=== PATIENT | male | born 1945 | race Caucasian/White ===

== ENCOUNTER 2018-10-20 22:28 | Emergency (ER) | payer MEDICARE, OTHER ==
--- NOTE | 2018-10-20 23:10 | EDM.PDOC ---
ED HPI GENERAL MEDICAL PROBLEM - General Chief Complaint: Genitourinary Problem Stated Complaint: NEEDS CATHETER Time Seen by Provider: 10/20/18 23:00 Source of Information: Reports: Patient History Limitations: Reports: No Limitations - History of Present Illness INITIAL COMMENTS - FREE TEXT/NARRATIVE: This 73 yo male patient reports to the ED due to hematuria. The patient reports he started to notice blood in his urine this afternoon. The patient reports earlier he did insert a catheter, but the catheter plugged. The patient reports he has been able to void 1 time prior to coming to the emergency department. The patient reports frequency and urgency, but is currently only able to void small amounts. Onset: Today Duration: Constant Location: Reports: Other Quality: Reports: Pressure Severity: Moderate Improves with: Reports: None Worsens with: Reports: None Context: Reports: Other Associated Symptoms: Reports: No Other Symptoms Bladder Pain Score (Numeric/FACES): 7 - Related Data Allergies Allergy/AdvReac Type Severity Reaction Status Date / Time cephalexin [From Keflex] Allergy Hives Verified 10/20/18 22:43 Home Meds: Home Meds Acyclovir 800 mg PO DAILY 10/20/18 [History] Past Medical History HEENT History: Reports: Cataract Cardiovascular History: Reports: Other (See Below) Other Cardiovascular History: "leaky heart valve" Gastrointestinal History: Reports: Other (See Below) Other Gastrointestinal History: esophageal ulcers Genitourinary History: Reports: Prostate Disorder - Infectious Disease History Infectious Disease History: Reports: Chicken Pox, Measles, Mumps, Shingles - Past Surgical History HEENT Surgical History: Reports: Cataract Surgery Other HEENT Surgeries/Procedures: L) Male Surgical History: Reports: TURP-Transurethral Resection of Prostate Social & Family History - Family History Family Medical History: Noncontributory - Tobacco Use Smoking Status *Q: Never Smoker - Caffeine Use Caffeine Use: Reports: Coffee, Tea - Recreational Drug Use Recreational Drug Use: No ED ROS GENERAL - Review of Systems Review Of Systems: ROS reveals no pertinent complaints other than HPI. ED EXAM, RENAL/ - Physical Exam Exam: See Below Exam Limited By: No Limitations General Appearance: Alert, WD/WN, Moderate Distress Eye Exam: Bilateral Eye: EOMI, Normal Inspection, PERRL Ears: Normal External Exam, Normal Canal, Hearing Grossly Normal, Normal TMs Nose: Normal Inspection, Normal Mucosa, No Blood Throat/Mouth: Normal Inspection, Normal Lips, Normal Teeth, Normal Gums, Normal Oropharynx, Normal Voice, No Airway Compromise Head: Atraumatic, Normocephalic Neck: Normal Inspection, Supple, Non-Tender, Full Range of Motion Respiratory/Chest: No Respiratory Distress, Lungs Clear, Normal Breath Sounds, No Accessory Muscle Use, Chest Non-Tender Cardiovascular: Normal Peripheral Pulses, Regular Rate, Rhythm, No Edema, No Gallop, No JVD, No Murmur, No Rub GI/Abdominal: Normal Bowel Sounds, Soft, Tender (lower abdomen) (Male) Exam: Deferred Rectal (Males) Exam: Deferred Back Exam: Normal Inspection, Full Range of Motion, NT Extremities: Normal Inspection, Normal Range of Motion, Non-Tender, Normal Capillary Refill, No Pedal Edema Neurological: Alert, Oriented, CN II-XII Intact, Normal Cognition, Normal Gait, Normal Reflexes, No Motor/Sensory Deficits Psychiatric: Normal Affect, Normal Mood Skin Exam: Warm, Dry, Intact, Normal Color, No Rash Lymphatic: No Adenopathy Course - Vital Signs Last Recorded V/S: Last Vital Signs Temp 36.4 C 10/20/18 22:50 Pulse 107 H 10/20/18 22:50 Resp 16 10/20/18 22:50 BP 171/74 H 10/20/18 22:50 Pulse Ox 97 10/20/18 22:50 - Orders/Labs/Meds Orders: Active Orders 24 hr Category Date Time Status Bladder Scan [RC] ASDIRECTED Care 10/20/18 23:03 Active Urinary Catheter Assessment [RC] ASDIRECTED Care 10/20/18 23:03 Active Urinary Catheter Insertion [Insert Urinary Catheter] [ Care 10/20/18 23:15 Ordered OM.PC] Q24H Abdomen 1V Flat [CR] Urgent Exams 10/21/18 00:24 Ordered CULTURE URINE [RM] Urgent Lab 10/20/18 22:51 Received Labs: Laboratory Tests 10/20/18 Range/Units 22:51 Urine Color Red (YELLOW) Urine Appearance Turbid (CLEAR) Urine pH 8.5 (5.0-9.0) Ur Specific [place] <= 1.005 (1.005-1.030) Urine Protein >=300 H (NEGATIVE) Urine Glucose (UA) 100 H (NEGATIVE) Urine Ketones 40 H (NEGATIVE) Urine Occult Blood Large H (NEGATIVE) Urine Nitrite Negative (NEGATIVE) Urine Bilirubin Large H (NEGATIVE) Urine Urobilinogen 4.0 H (0.2-1.0) mg/dL Ur Leukocyte Esterase Large H (NEGATIVE) Urine RBC Semi-packed H /HPF Urine WBC 30-40 H (0-5/HPF) /HPF Ur Epithelial Cells Few /HPF Urine Bacteria Moderate H (0-FEW/HPF) /HPF Meds: Medications Discontinued Medications Generic Name Dose Route Start Last Admin Trade Name Abdon PRN Reason Stop Dose Admin Lidocaine HCl 5 ml 10/20/18 23:32 10/20/18 23:43 Xylocaine 2% Jelly TOP 10/20/18 23:33 Not Given ONETIME ONE Lidocaine HCl Confirm 10/20/18 23:39 10/20/18 23:41 Xylocaine 2% Jelly Administered 10/20/18 23:40 Not Given Dose 10 ml .ROUTE .STK-MED ONE Lidocaine HCl 10 ml 10/20/18 23:39 10/20/18 23:43 Xylocaine 2% Jelly MUCMEM 10/20/18 23:40 10 ml ONETIME ONE Administration Tamsulosin HCl 0.4 mg 10/21/18 00:54 10/21/18 01:04 Flomax PO 10/21/18 00:55 0.4 mg ONETIME ONE Administration - Re-Assessments/Exams Free Text/Narrative Re-Assessment/Exam: 10/21/18 01:05 Several attempts at placing a catheter in the patient with a 14 rwandan and a 14 caude x 2 attempts with no success. An attempt to irrigate the catheter was also unsuccessful. An x-ray revealed the catheter had kinked back on itself. The catheter was removed prior to the patient leaving our facility. Departure - Departure Time of Disposition: 01:10 Disposition: DC/Tfer to Acute Hospital 02 Condition: Fair Clinical Impression: Gross hematuria - Discharge Information *PRESCRIPTION DRUG MONITORING PROGRAM REVIEWED*: Not Applicable *COPY OF PRESCRIPTION DRUG MONITORING REPORT IN PATIENT CARMEN: Not Applicable Forms: Interfacility Transfer EMTALA Care Plan Goals: Discussed the patient's history, examination, lab and x-ray results with Dr. Anaya ([facility]). Dr. Anaya accepted the patient for continued evaluation and further management. The patient will drive himself to [facility] for continued care. - My Orders Last 24 Hours: My Active Orders 10/20/18 22:51 CULTURE URINE [RM] Urgent 10/20/18 23:03 Bladder Scan [RC] ASDIRECTED Urinary Catheter Assessment [RC] ASDIRECTED 10/20/18 23:15 Urinary Catheter Insertion [Insert Urinary Catheter] [OM.PC] Q24H 10/21/18 00:24 Abdomen 1V Flat [CR] Urgent - Assessment/Plan Last 24 Hours: My Active Orders 10/20/18 22:51 CULTURE URINE [RM] Urgent 10/20/18 23:03 Bladder Scan [RC] ASDIRECTED Urinary Catheter Assessment [RC] ASDIRECTED 10/20/18 23:15 Urinary Catheter Insertion [Insert Urinary Catheter] [OM.PC] Q24H 10/21/18 00:24 Abdomen 1V Flat [CR] Urgent
[2018-10-20] MEDS ORDERED: Lidocaine 2% Jelly 5 ML Tube TOP ONE (23:32)
[2018-10-20] MEDS ORDERED: Lidocaine 2% Jelly 10 ML Urojet MUCMEM ONE (23:39)
[2018-10-20] MEDS ORDERED: Lidocaine 2% Jelly 10 ML Urojet ONE (23:39)
[2018-10-21] MEDS ORDERED: Tamsulosin 0.4 MG Cap.ER PO ONE (00:54)
== END 2018-10-21 01:28 ==
LOC: DL.ED 22:28
DX: R31.0 Gross hematuria (principal); Z88.1 Allergy status to other antibiotic agents
CPT/HCPCS: 74018; 81001; 87086; 99284; A9270

== ENCOUNTER 2018-11-13 08:06 | Emergency (ER) | payer MEDICARE, OTHER ==
[2018-11-13] MEDS ORDERED: Sodium Chloride 0.9% 10 ML Syringe FLUSH PRN (08:18)
--- NOTE | 2018-11-13 08:28 | EDM.PDOC ---
ED HPI GENERAL MEDICAL PROBLEM - General Chief Complaint: Genitourinary Problem Stated Complaint: FEVER [id number] Time Seen by Provider: 11/13/18 08:20 Source of Information: Reports: Patient, Old Records, RN, RN Notes Reviewed History Limitations: Reports: No Limitations - History of Present Illness INITIAL COMMENTS - FREE TEXT/NARRATIVE: Pt presents to ER from home by POV with c/o fever and possible urinary tract infection. Pt states he had a cystoscopy in [place] yesterday, but they could not get the scope through, and rescheduled him to have it done under sedation. His urologist told him to go to the ER if he developed a fever. Pt states he was prescribed Bactrim DS and has taken 2 doses. Last night he reports he developed a fever of 101F. Today he still has a fever, so he came to the ER. He denies cough, or any other symptoms. Onset: Gradual Duration: Day(s): (1-2) Location: Reports: Other (urinary) Severity: Moderate Improves with: Reports: None Worsens with: Reports: None Associated Symptoms: Reports: No Other Symptoms - Related Data Allergies Allergy/AdvReac Type Severity Reaction Status Date / Time cephalexin [From Keflex] Allergy Hives Verified 11/13/18 08:24 Home Meds: Home Meds Acyclovir 800 mg PO DAILY 10/20/18 [History] Past Medical History HEENT History: Reports: Cataract Cardiovascular History: Reports: Other (See Below) Other Cardiovascular History: "leaky heart valve" Gastrointestinal History: Reports: Other (See Below) Other Gastrointestinal History: esophageal ulcers Genitourinary History: Reports: Prostate Disorder, Retention, Urinary - Infectious Disease History Infectious Disease History: Reports: Chicken Pox, Measles, Mumps, Shingles - Past Surgical History HEENT Surgical History: Reports: Cataract Surgery Other HEENT Surgeries/Procedures: L) Male Surgical History: Reports: TURP-Transurethral Resection of Prostate Social & Family History - Family History Family Medical History: Noncontributory - Caffeine Use Caffeine Use: Reports: Coffee, Tea - Living Situation & Occupation Occupation: Retired ED ROS GENERAL - Review of Systems Review Of Systems: ROS reveals no pertinent complaints other than HPI. ED EXAM, RENAL/ - Physical Exam Exam: See Below Exam Limited By: No Limitations General Appearance: Alert, WD/WN, No Apparent Distress Nose: Normal Inspection Throat/Mouth: Normal Inspection Head: Atraumatic, Normocephalic Neck: Normal Inspection Respiratory/Chest: No Respiratory Distress, Lungs Clear, Normal Breath Sounds, No Accessory Muscle Use, Chest Non-Tender Cardiovascular: Normal Peripheral Pulses, Regular Rate, Rhythm, No Edema, No Gallop, No JVD, No Murmur, No Rub GI/Abdominal: Normal Bowel Sounds, Soft, Non-Tender, No Organomegaly, No Distention, No Abnormal Bruit, No Mass (Male) Exam: Normal Inspection, Other (Hayden cath. in place with cloudy dark yellow urine in tube and bag.) Rectal (Males) Exam: Deferred Back Exam: Normal Inspection. No: CVA Tenderness (L), CVA Tenderness (R) Extremities: Normal Inspection Neurological: Alert, Oriented, Normal Cognition, Normal Gait, No Motor/Sensory Deficits Psychiatric: Normal Affect, Normal Mood Skin Exam: Warm, Dry, Intact, Normal Color, No Rash Course - Vital Signs Last Recorded V/S: Last Vital Signs Temp 38.0 C 11/13/18 08:23 Pulse 95 11/13/18 08:23 Resp 16 11/13/18 08:23 BP 110/59 L 11/13/18 08:23 Pulse Ox 95 11/13/18 08:23 - Orders/Labs/Meds Orders: Active Orders 24 hr Category Date Time Status Peripheral IV Care [RC] . DIRECTED Care 11/13/18 08:20 Active CULTURE BLOOD [BC] Stat Lab 11/13/18 08:34 Received CULTURE BLOOD [BC] Stat Lab 11/13/18 08:39 Received CULTURE URINE [RM] Stat Lab 11/13/18 08:41 Received Levofloxacin/Dextrose 5%-Water [Levaquin in D5W 500 MG/ Med 11/13/18 09:34 Active 100 ML] 500 mg Premix Bag 1 bag IV ONETIME Sodium Chloride 0.9% [Normal Saline] 1,000 ml Med 11/13/18 09:34 Active IV .BOLUS Sodium Chloride 0.9% [Saline Flush] Med 11/13/18 08:18 Active 10 ml FLUSH ASDIRECTED PRN Blood Culture x2 Reflex Set [OM.PC] Stat Oth 11/13/18 08:19 Ordered Peripheral IV Insertion Adult [OM.PC] Stat Oth 11/13/18 08:19 Ordered Medication Orders Levofloxacin/Dextrose 500 mg/ (Premix) 100 mls @ 100 mls/hr IV ONETIME ONE Stop: 11/13/18 10:33 Last Admin: 11/13/18 09:53 Dose: 100 mls/hr Sodium Chloride (Normal Saline) 1,000 mls @ 500 mls/hr IV .BOLUS ONE Stop: 11/13/18 11:33 Last Admin: 11/13/18 09:52 Dose: 500 mls/hr Sodium Chloride (Saline Flush) 10 ml FLUSH ASDIRECTED PRN PRN Reason: Keep Vein Open Last Admin: 11/13/18 08:41 Dose: 10 ml Labs: Laboratory Tests 11/13/18 11/13/18 11/13/18 Range/Units 08:34 08:34 08:34 WBC 10.2 H (5.0-10.0) 10^3/uL RBC 4.99 (4.6-6.2) 10^6/uL Hgb 12.7 L (14.0-18.0) g/dL Hct 37.6 L (40.0-54.0) % MCV 75.4 L (80-100) fL MCH 25.5 L (27.0-34.0) pg MCHC 33.8 (33.0-35.0) g/dL Plt Count 296 (150-450) 10^3/uL Neut % (Auto) 85.5 H (42.2-75.2) % Lymph % (Auto) 6.0 L (20.5-50.1) % [place] % (Auto) 8.4 H (2-8) % Eos % (Auto) 0.0 L (1.0-3.0) % Baso % (Auto) 0.1 (0.0-1.0) % Sodium 131 L (135-145) mmol/L Potassium 3.7 (3.6-5.0) mmol/L Chloride 101 (101-111) mmol/L Carbon Dioxide 18.0 L (21.0-31.0) mmol/L Anion Gap 15.7 BUN 11 (7-18) mg/dL Creatinine 1.0 (0.6-1.3) mg/dL Est Cr Clr Drug Dosing 74.21 mL/min Estimated GFR (MDRD) > 60 BUN/Creatinine Ratio 11.00 Glucose 131 H (74-105) mg/dL Lactic Acid 1.6 (0.5-2.2) mmol/L Calcium 8.5 (8.4-10.2) mg/dl Total Bilirubin 0.8 (0.2-1.0) mg/dL AST 28 (10-42) IU/L ALT 22 (10-60) IU/L Alkaline Phosphatase 94 (42-121) IU/L Total Protein 7.0 (6.7-8.2) g/dl Albumin 3.6 (3.2-5.5) g/dl Globulin 3.4 Albumin/Globulin Ratio 1.06 Urine Color (YELLOW) Urine Appearance (CLEAR) Urine pH (5.0-9.0) Ur Specific [place] (1.005-1.030) Urine Protein (NEGATIVE) Urine Glucose (UA) (NEGATIVE) Urine Ketones (NEGATIVE) Urine Occult Blood (NEGATIVE) Urine Nitrite (NEGATIVE) Urine Bilirubin (NEGATIVE) Urine Urobilinogen (0.2-1.0) mg/dL Ur Leukocyte Esterase (NEGATIVE) Urine RBC /HPF Urine WBC (0-5/HPF) /HPF Ur Epithelial Cells /HPF Amorphous Sediment (0/HPF) /HPF Urine Bacteria (0-FEW/HPF) /HPF Urine Mucus /LPF 11/13/18 Range/Units 08:41 WBC (5.0-10.0) 10^3/uL RBC (4.6-6.2) 10^6/uL Hgb (14.0-18.0) g/dL Hct (40.0-54.0) % MCV (80-100) fL MCH (27.0-34.0) pg MCHC (33.0-35.0) g/dL Plt Count (150-450) 10^3/uL Neut % (Auto) (42.2-75.2) % Lymph % (Auto) (20.5-50.1) % [place] % (Auto) (2-8) % Eos % (Auto) (1.0-3.0) % Baso % (Auto) (0.0-1.0) % Sodium (135-145) mmol/L Potassium (3.6-5.0) mmol/L Chloride (101-111) mmol/L Carbon Dioxide (21.0-31.0) mmol/L Anion Gap BUN (7-18) mg/dL Creatinine (0.6-1.3) mg/dL Est Cr Clr Drug Dosing mL/min Estimated GFR (MDRD) BUN/Creatinine Ratio Glucose (74-105) mg/dL Lactic Acid (0.5-2.2) mmol/L Calcium (8.4-10.2) mg/dl Total Bilirubin (0.2-1.0) mg/dL AST (10-42) IU/L ALT (10-60) IU/L Alkaline Phosphatase (42-121) IU/L Total Protein (6.7-8.2) g/dl Albumin (3.2-5.5) g/dl Globulin Albumin/Globulin Ratio Urine Color [place] (YELLOW) Urine Appearance Cloudy (CLEAR) Urine pH 5.5 (5.0-9.0) Ur Specific [place] 1.025 (1.005-1.030) Urine Protein >=300 H (NEGATIVE) Urine Glucose (UA) Negative (NEGATIVE) Urine Ketones Negative (NEGATIVE) Urine Occult Blood Large H (NEGATIVE) Urine Nitrite Positive H (NEGATIVE) Urine Bilirubin Negative (NEGATIVE) Urine Urobilinogen 0.2 (0.2-1.0) mg/dL Ur Leukocyte Esterase Small H (NEGATIVE) Urine RBC >100 H /HPF Urine WBC 75-100 H (0-5/HPF) /HPF Ur Epithelial Cells Rare /HPF Amorphous Sediment Few (0/HPF) /HPF Urine Bacteria Many H (0-FEW/HPF) /HPF Urine Mucus Few H /LPF Meds: Medications Generic Name Dose Route Start Last Admin Trade Name Freq PRN Reason Stop Dose Admin Levofloxacin/Dextrose 500 mg/ 100 mls @ 100 mls/hr 11/13/18 09:34 11/13/18 09 :53 Premix IV 11/13/18 10:33 100 mls/hr ONETIME ONE Administration Sodium Chloride 1,000 mls @ 500 mls/hr 11/13/18 09:34 11/13/18 09:52 Normal Saline IV 11/13/18 11:33 500 mls/hr .BOLUS ONE Administration Sodium Chloride 10 ml 11/13/18 08:18 11/13/18 08:41 Saline Flush FLUSH 10 ml ASDIRECTED PRN Administration Keep Vein Open Departure - Departure Time of Disposition: 10:50 Disposition: Home, Self-Care 01 Condition: Good Clinical Impression: Postoperative UTI (urinary tract infection) - Discharge Information *PRESCRIPTION DRUG MONITORING PROGRAM REVIEWED*: No *COPY OF PRESCRIPTION DRUG MONITORING REPORT IN PATIENT CARMEN: No Instructions: Urinary Tract Infection, Adult Forms: ED Department Discharge Additional Instructions: Rx: Cipro 500mg Continue Bactrim as prescribed by your urologist. Follow up in clinic with your urologist as planned. See your primary doctor for urine recheck in 5 to 7 days. Return to ER if fevers persist longer than 24 hours from today, or if any new or concerning symptoms develop. - My Orders Last 24 Hours: My Active Orders 11/13/18 08:18 Sodium Chloride 0.9% [Saline Flush] 10 ml FLUSH ASDIRECTED PRN 11/13/18 08:19 Blood Culture x2 Reflex Set [OM.PC] Stat Peripheral IV Insertion Adult [OM.PC] Stat 11/13/18 08:20 Peripheral IV Care [RC] . DIRECTED 11/13/18 08:34 CULTURE BLOOD [BC] Stat 11/13/18 08:39 CULTURE BLOOD [BC] Stat 11/13/18 08:41 CULTURE URINE [RM] Stat 11/13/18 09:34 Levofloxacin/Dextrose 5%-Water [Levaquin in D5W 500 MG/100 ML] 500 mg Premix Bag 1 bag IV ONETIME Sodium Chloride 0.9% [Normal Saline] 1,000 ml IV .BOLUS - Assessment/Plan Last 24 Hours: My Active Orders 11/13/18 08:18 Sodium Chloride 0.9% [Saline Flush] 10 ml FLUSH ASDIRECTED PRN 11/13/18 08:19 Blood Culture x2 Reflex Set [OM.PC] Stat Peripheral IV Insertion Adult [OM.PC] Stat 11/13/18 08:20 Peripheral IV Care [RC] . DIRECTED 11/13/18 08:34 CULTURE BLOOD [BC] Stat 11/13/18 08:39 CULTURE BLOOD [BC] Stat 11/13/18 08:41 CULTURE URINE [RM] Stat 11/13/18 09:34 Levofloxacin/Dextrose 5%-Water [Levaquin in D5W 500 MG/100 ML] 500 mg Premix Bag 1 bag IV ONETIME Sodium Chloride 0.9% [Normal Saline] 1,000 ml IV .BOLUS
[2018-11-13 09:20] LABS: ANION GAP 15.7; CHLORIDE,CL 101 mmol/L (101-111); SODIUM,NA 131 mmol/L (135-145)
[2018-11-13] MEDS ORDERED: Levofloxacin/Dextrose 5%-Water 500 MG in Premix Bag 1 BAG IV ONE (09:34)
[2018-11-13] MEDS ORDERED: Sodium Chloride 0.9% 1,000 ML IV ONE (09:34)
[2018-11-13] MEDS ORDERED: Acetaminophen 500 MG Tab PO ONE (10:57)
== END 2018-11-13 12:40 | disposition home or self-care (01) ==
LOC: DL.ED 08:06
DX: N99.89 Other postprocedural complications and disorders of genitourinary system (principal); N39.0 Urinary tract infection, site not specified; Z79.899 Other long term (current) drug therapy; Z88.1 Allergy status to other antibiotic agents
CPT/HCPCS: 36415; 80053; 81001; 83605; 85025; 87040; 87086; 87088; 87186; 96365; 99283; A9270; J1956; J7030

== ENCOUNTER 2021-04-19 17:48 | Emergency (ER) | payer MEDICARE, OTHER ==
[2021-04-19] MEDS ORDERED: Lidocaine 2% Jelly 10 ML Urojet ONE (19:40)
[2021-04-19] MEDS ORDERED: Lidocaine 2% Jelly 10 ML Urojet MUCMEM ONE (20:11)
[2021-04-19] MEDS ORDERED: Ciprofloxacin 500 MG Tab PO ONE (21:10)
--- NOTE | 2021-04-19 21:13 | EDM.PDOC ---
ED HPI GENERAL MEDICAL PROBLEM - General Chief Complaint: Genitourinary Problem Stated Complaint: NEEDS CATHYTOR Time Seen by Provider: 04/19/21 20:00 Source of Information: Reports: Patient, RN History Limitations: Reports: No Limitations - History of Present Illness INITIAL COMMENTS - FREE TEXT/NARRATIVE: ED with stating needs catheter. Has hx urinary retention and unable to void since afternoon. has had catheter in past reports enlarged prostate, has had radiation in remote past and tissue has grown back . Denied fever or chills, no vomiting. Bilateral Lower Pelvic Pain Score (Numeric/FACES): 8 - Related Data Allergies Allergy/AdvReac Type Severity Reaction Status Date / Time cephalexin [From Keflex] Allergy Hives Verified 04/27/21 19:38 Home Meds: Home Meds Acyclovir 800 mg PO DAILY 10/20/18 [History] Past Medical History HEENT History: Reports: Cataract Cardiovascular History: Reports: Other (See Below) Other Cardiovascular History: "leaky heart valve" Gastrointestinal History: Reports: Other (See Below) Other Gastrointestinal History: esophageal ulcers Genitourinary History: Reports: Prostate Disorder, Retention, Urinary - Infectious Disease History Infectious Disease History: Reports: Chicken Pox, Measles, Mumps, Shingles - Past Surgical History HEENT Surgical History: Reports: Cataract Surgery Other HEENT Surgeries/Procedures: L) Male Surgical History: Reports: TURP-Transurethral Resection of Prostate Social & Family History - Family History Family Medical History: No Pertinent Family History - Tobacco Use Tobacco Use Status *Q: Never Tobacco User - Caffeine Use Caffeine Use: Reports: Coffee, Tea - Recreational Drug Use Recreational Drug Use: No - Living Situation & Occupation Occupation: Retired ED ROS GENERAL - Review of Systems Review Of Systems: Comprehensive ROS is negative, except as noted in HPI. ED EXAM, RENAL/ - Physical Exam Exam: See Below Exam Limited By: No Limitations General Appearance: Alert, Mild Distress Eye Exam: Bilateral Eye: EOMI Ears: Normal External Exam, Hearing Loss (mild) Throat/Mouth: Normal Inspection Head: Atraumatic, Normocephalic Neck: Normal Inspection Respiratory/Chest: No Respiratory Distress, Lungs Clear Cardiovascular: Regular Rate, Rhythm GI/Abdominal: Soft Back Exam: No: CVA Tenderness (L), CVA Tenderness (R) Neurological: Alert, Oriented, Normal Cognition Psychiatric: Normal Affect Skin Exam: Warm, Dry, Intact Course - Vital Signs Last Recorded V/S: Last Vital Signs Temp 96.7 F L 04/19/21 19:56 Pulse 109 H 04/19/21 19:56 Resp 16 04/19/21 19:56 BP 124/84 04/19/21 19:56 Pulse Ox 95 04/19/21 19:56 - Orders/Labs/Meds Labs: Laboratory Tests 04/19/21 Range/Units 19:55 Urine Color Yellow (YELLOW) Urine Appearance Slightly cloudy (CLEAR) Urine pH 5.0 (5.0-9.0) Ur Specific [place] 1.025 (1.005-1.030) Urine Protein 30 H (NEGATIVE) Urine Glucose (UA) Negative (NEGATIVE) Urine Ketones Negative (NEGATIVE) Urine Occult Blood Large H (NEGATIVE) Urine Nitrite Negative (NEGATIVE) Urine Bilirubin Negative (NEGATIVE) Urine Urobilinogen 0.2 (0.2-1.0) mg/dL Ur Leukocyte Esterase Negative (NEGATIVE) Urine RBC Semi-packed H (0-5) /HPF Urine WBC 5-10 H (0-5/HPF) /HPF Ur Epithelial Cells Moderate H (NOT SEEN) /HPF Urine Bacteria Moderate H (0-FEW/HPF) /HPF Meds: Medications Discontinued Medications Generic Name Dose Route Start Last Admin Trade Name Freq PRN Reason Stop Dose Admin Ciprofloxacin 500 mg 04/19/21 21:10 04/19/21 21:40 Ciprofloxacin 500 Mg Tab PO 04/19/21 21:11 500 mg ONETIME ONE Administration Lidocaine HCl Confirm 04/19/21 19:40 04/19/21 20:11 Lidocaine 2% Jelly 10 Ml Urojet Administered 04/19/21 19:41 Not Given Dose 10 ml .ROUTE .STK-MED ONE Lidocaine HCl 10 ml 04/19/21 20:11 04/19/21 20:22 Lidocaine 2% Jelly 10 Ml Urojet MUCMEM 04/19/21 20:12 10 ml ONETIME ONE Administration Departure - Departure Time of Disposition: 21:10 Disposition: Home, Self-Care 01 Condition: Good Clinical Impression: Urinary retention - Discharge Information *PRESCRIPTION DRUG MONITORING PROGRAM REVIEWED*: No *COPY OF PRESCRIPTION DRUG MONITORING REPORT IN PATIENT CARMEN: No Instructions: Indwelling Urinary Catheter Care, Adult Referrals: PCP,None [Primary Care Provider] - Forms: ED Department Discharge Additional Instructions: clinic follow up this week urgent follow up weakness, fever, flank pain cipro 250mg twice daily for 5 days
== END 2021-04-19 21:41 | disposition home or self-care (01) ==
LOC: DL.ED 17:48
DX: R33.9 Retention of urine, unspecified (principal); Z88.1 Allergy status to other antibiotic agents
CPT/HCPCS: 51702; 81001; 99283; A9270

== ENCOUNTER 2021-04-27 18:26 | Emergency (ER) | payer MEDICARE, OTHER ==
[2021-04-27] MEDS ORDERED: Lidocaine 2% Jelly 10 ML Urojet ONE ×2 (18:27→19:46)
--- NOTE | 2021-04-27 19:47 | EDM.PDOC ---
ED HPI GENERAL MEDICAL PROBLEM - General Chief Complaint: Genitourinary Problem Stated Complaint: CATHYTER Time Seen by Provider: 04/27/21 19:47 Source of Information: Reports: Patient History Limitations: Reports: No Limitations - History of Present Illness INITIAL COMMENTS - FREE TEXT/NARRATIVE: Patient comes emergency department today from home with complaints of unable to urinate. This patient just had a Hayden catheter removed this morning at urology. He had a Hayden catheter in for the last 8 days due to urinary retention most likely due to enlarged prostate. He has had his medication of Flomax doubled for the last 5 days prior to the removal of his catheter this morning. After his catheter was removed he just had dribbling of urine most of the day and now he is unable to urinate. He has lots of pressure in his abdomen. He has no fever or chills. No flank pain. No hematuria. No dysuria. He has had no instrumentation or recent procedures. Other than the Hayden catheter placed. He has not had any UTI recently. - Related Data Allergies Allergy/AdvReac Type Severity Reaction Status Date / Time cephalexin [From Keflex] Allergy Hives Verified 04/27/21 19:38 Home Meds: Home Meds Acyclovir 800 mg PO DAILY 10/20/18 [History] Past Medical History HEENT History: Reports: Cataract Cardiovascular History: Reports: Other (See Below) Other Cardiovascular History: "leaky heart valve" Gastrointestinal History: Reports: Other (See Below) Other Gastrointestinal History: esophageal ulcers Genitourinary History: Reports: Prostate Disorder, Retention, Urinary - Infectious Disease History Infectious Disease History: Reports: Chicken Pox, Measles, Mumps, Shingles - Past Surgical History HEENT Surgical History: Reports: Cataract Surgery Other HEENT Surgeries/Procedures: L) Male Surgical History: Reports: TURP-Transurethral Resection of Prostate Social & Family History - Family History Family Medical History: No Pertinent Family History - Caffeine Use Caffeine Use: Reports: Coffee, Tea - Living Situation & Occupation Occupation: Retired ED ROS GENERAL - Review of Systems Review Of Systems: Comprehensive ROS is negative, except as noted in HPI. ED EXAM, RENAL/ - Physical Exam Exam: See Below Exam Limited By: No Limitations General Appearance: Alert, WD/WN, Moderate Distress Respiratory/Chest: No Respiratory Distress Cardiovascular: Normal Peripheral Pulses GI/Abdominal: Normal Bowel Sounds, Soft, Tender (Is have some mild tenderness in the suprapubic region. Rest of his abdomen is soft nontender nondistended. No guarding rigidity or rebound.) Back Exam: Normal Inspection, Full Range of Motion. No: CVA Tenderness (L), CVA Tenderness (R) Extremities: Normal Inspection, No Pedal Edema Neurological: Alert, Oriented, Normal Cognition, No Motor/Sensory Deficits Psychiatric: Anxious Skin Exam: Warm, Dry, Intact, Normal Color Course - Vital Signs Last Recorded V/S: Last Vital Signs Temp 97.7 F 04/27/21 19:45 Pulse 68 04/27/21 19:45 Resp 20 04/27/21 19:45 BP 132/67 04/27/21 19:45 Pulse Ox 97 04/27/21 19:45 - Orders/Labs/Meds Orders: Active Orders 24 hr Category Date Time Status Insert Urinary Catheter [OM.PC] Q24H Care 04/27/21 19:45 Ordered Labs: Laboratory Tests 04/27/21 Range/Units 20:15 Urine Color Yellow (YELLOW) Urine Appearance Slightly cloudy (CLEAR) Urine pH 5.5 (5.0-9.0) Ur Specific [place] 1.025 (1.005-1.030) Urine Protein Trace H (NEGATIVE) Urine Glucose (UA) Negative (NEGATIVE) Urine Ketones Negative (NEGATIVE) Urine Occult Blood Large H (NEGATIVE) Urine Nitrite Negative (NEGATIVE) Urine Bilirubin Negative (NEGATIVE) Urine Urobilinogen 0.2 (0.2-1.0) mg/dL Ur Leukocyte Esterase Negative (NEGATIVE) Urine RBC >100 H (0-5) /HPF Urine WBC 0-5 (0-5/HPF) /HPF Ur Epithelial Cells Rare (NOT SEEN) /HPF Amorphous Sediment Rare (NOT SEEN) /HPF Urine Bacteria Rare (0-FEW/HPF) /HPF Urine Mucus Rare (NOT SEEN) /LPF Meds: Medications Discontinued Medications Generic Name Dose Route Start Last Admin Trade Name Abdon PRN Reason Stop Dose Admin Lidocaine HCl Confirm 04/27/21 19:46 Lidocaine 2% Jelly 10 Ml Urojet Administered 04/27/21 19:47 Dose 10 ml .ROUTE .STK-MED ONE - Re-Assessments/Exams Free Text/Narrative Re-Assessment/Exam: 04/27/21 19:53 Bedside bladder scan with about 450 mils of urine. Lidocaine Urojet. Hayden catheter inserted. Also as ordered. Hayden was placed using a coud catheter. Urine returned about 1200 mils of clear urine. Urinalysis has quite a bit of blood in it but this is not surprising as the urinary catheter was placed with some difficulty by nursing staff. There is no sign of infection. We will keep the Hayden catheter in at this time is clearly the patient is not ready to have it removed. I will have him contact urology in the morning for follow-up. He is comfortable with this plan his questions are answered. Departure - Departure Time of Disposition: 20:52 Disposition: Home, Self-Care 01 Clinical Impression: Urinary retention - Discharge Information Instructions: Indwelling Urinary Catheter Care, Adult Referrals: PCP,None [Primary Care Provider] - Forms: ED Department Discharge Additional Instructions: Contact your urologist tomorrow about your urinary retention. Hayden cares at home as previous. Recheck if any new or worsening symptoms. Sepsis Event Note (ED) - Focused Exam Vital Signs: Vital Signs Temp Pulse Resp BP Pulse Ox 04/27/21 19:45 97.7 F 68 20 132/67 97 - My Orders Last 24 Hours: My Active Orders 04/27/21 19:45 Insert Urinary Catheter [OM.PC] Q24H - Assessment/Plan Last 24 Hours: My Active Orders 04/27/21 19:45 Insert Urinary Catheter [OM.PC] Q24H
== END 2021-04-27 21:07 | disposition home or self-care (01) ==
LOC: DL.ED 18:26
DX: R33.9 Retention of urine, unspecified (principal); Z88.1 Allergy status to other antibiotic agents
CPT/HCPCS: 51702; 51798; 81001; 99283-25